=== PATIENT | male | born 1985 | race Caucasian/White ===

== ENCOUNTER 2020-05-07 16:35 | Emergency (ER) | payer OTHER ==
[~2020-05-07] VITALS: Ht 180.3 cm; Wt 93.2 kg
[2020-05-07] MEDS ORDERED: LIDOCAINE 2% MDV 20ML VIAL SC ONE (17:30)
[2020-05-07] MEDS ORDERED: BOOSTRIX/ADACEL VACCINE (DIPHTH/PERTUSS/ACELL/TETANUS) 0.5ML SYR IM ONE (18:15)
[2020-05-07] MEDS ORDERED: DERMABOND TOPICAL SKIN ADHESIVE TOP ONE (19:00)
[2020-05-07] MEDS ORDERED: KEFL500C17 PO (19:08)
[2020-05-07 19:16] VITALS: BP 126/71
--- NOTE | 2020-05-08 04:26 | REP ---
LEFT WRIST, COMPLETE: 05/07/2020. CLINICAL HISTORY: Laceration. FINDINGS: Some soft tissue swelling over the dorsal aspect of the wrist. I do not see a radiopaque foreign body. No fracture of the distal radius or ulna. The carpal bones and their articulations were unremarkable. Metacarpals also intact. IMPRESSION: 1. Soft tissue swelling dorsal aspect of the wrist is mild. No radiopaque foreign body, fracture, or other focal lesion. Electronically Signed by Domenic Amaral MD 05/08/2020 08:56 A
--- NOTE | 2020-05-08 04:29 | REP ---
RIGHT FINGERS: 05/07/2020. CLINICAL HISTORY: Laceration, injured 1st and 2nd digits. TECHNIQUE: Four views of the thumb and 2nd finger with portions of 3rd finger seen on some images. FINDINGS: I do not see radiopaque foreign body. Some soft tissue swelling about the PIP joint of the 2nd digit. There is no fracture or avulsion of the metacarpals, phalanges, and their MCP and IP joints were unremarkable. IMPRESSION: 1. Minor soft tissue swelling, but no fracture, avulsion, foreign body, or other acute finding. Electronically Signed by Domenic Amaral MD 05/08/2020 08:56 A
== END 2020-05-07 19:30 | disposition home or self-care (01) ==
LOC: M ED 16:35
DX: S61.512A Laceration without foreign body of left wrist, initial encounter (principal); S61.210A Laceration without foreign body of right index finger without damage to nail, initial encounter; S61.011A Laceration without foreign body of right thumb without damage to nail, initial encounter; W26.8XXA Contact with other sharp object(s), not elsewhere classified, initial encounter; Y92.099 Unspecified place in other non-institutional residence as the place of occurrence of the external cause; Y93.89 Activity, other specified; Y99.9 Unspecified external cause status

== ENCOUNTER → 2020-12-05 | Outpatient (CLI) | payer SELFPAY ==
[~2020-12-05] MED LIST: KEFL500C17 PO
== END ==
LOC: M LABSMTC 12:16
PROVIDERS: ATTEND Pediatrics
DX: Z20.822 Contact with and (suspected) exposure to COVID-19 (principal)